=== PATIENT | female | born 1985 | race Caucasian/White ===

== ENCOUNTER 2020-07-02 17:40 | Emergency (ER) | payer MEDICAID ==
[~2020-07-02] VITALS: Ht 167.6 cm; Wt 99.8 kg
[2020-07-02 18:02] LABS: URINE BILIRUBIN NEGATIVE (Negative); URINE BLOOD NEGATIVE (Negative); URINE CLARITY CLEAR; URINE COLOR YELLOW; URINE GLUCOSE-RANDOM NEGATIVE (Negative); URINE KETONES NEGATIVE (Negative); URINE LEUKOCYTES-REFLEX TRACE (Negative); URINE PROTEIN NEGATIVE (Negative); URINE UROBILINOGEN 0.2 E.U./dl (0.2-1.0)
[2020-07-02 18:05] LABS: URINE NITRITE-REFLEX POSITIVE (Negative)
[2020-07-02 18:26] LABS: BACTERIA-REFLEX >30 Many /HPF (None Seen); CASTS None Seen /LPF (None Seen); CRYSTALS None Seen /LPF (None Seen); MUCUS 0-3 Light strn/LPF (None Seen); SQUAMOUS 4-10 Moderate /LPF (0-3); URINE RBC 0-2 Rare /HPF (0-2); URINE WBC-REFLEX 6-15 Few /HPF (0-5); WBC CLUMPS Few (None Seen)
[2020-07-02] MEDS ORDERED: RID COMPLETE TOP (19:08)
[2020-07-02] MEDS ORDERED: KEFLEX500 M1 PO (19:08)
[2020-07-02 19:16] VITALS: BP 132/78
== END 2020-07-02 19:17 | disposition home or self-care (01) ==
LOC: M.ERS 17:40
PROVIDERS: Physician Assistant
DX: H61.22 Impacted cerumen, left ear (principal); N39.0 Urinary tract infection, site not specified; B85.0 Pediculosis due to Pediculus humanus capitis; Z88.0 Allergy status to penicillin; Z88.6 Allergy status to analgesic agent; Z88.8 Allergy status to other drugs, medicaments and biological substances

== ENCOUNTER 2021-04-19 23:40 | Emergency (ER) | payer OTHER ==
[~2021-04-19] VITALS: Ht 167.6 cm; Wt 101.6 kg
[~2021-04-19 23:40] MED LIST: KEFLEX500 M1 PO; RID COMPLETE TOP
[2021-04-19] MEDS ORDERED: TERBINAFINE HC250 MG PO (23:57)
[2021-04-19] MEDS ORDERED: CLARITIN10 M3 PO (23:57)
[2021-04-19] MEDS ORDERED: NEXIUM 24HR20 M1 PO (23:58)
[2021-04-20] MEDS ORDERED: PEPCID40 MG PO (01:26)
[2021-04-20] MEDS ORDERED: MEDROLDOSEPACK PO (01:26)
[2021-04-20 01:45] VITALS: BP 123/89
== END 2021-04-20 01:46 | disposition home or self-care (01) ==
LOC: M.ERS 23:40
DX: R21 Rash and other nonspecific skin eruption (principal); T49.0X5A Adverse effect of local antifungal, anti-infective and anti-inflammatory drugs, initial encounter; J45.909 Unspecified asthma, uncomplicated; Z88.5 Allergy status to narcotic agent; Z88.0 Allergy status to penicillin; Z88.8 Allergy status to other drugs, medicaments and biological substances; Y92.89 Other specified places as the place of occurrence of the external cause

== ENCOUNTER 2021-05-28 19:17 | Emergency (ER) | payer MEDICAID ==
[~2021-05-28] VITALS: Ht 167.6 cm; Wt 102.1 kg
[~2021-05-28 19:17] MED LIST changes: +CLARITIN10 M3 PO; +MEDROLDOSEPACK PO; +NEXIUM 24HR20 M1 PO; +PEPCID40 MG PO; +TERBINAFINE HC250 MG PO
[2021-05-28 20:06] LABS: ABSOLUTE BASOPHILS 0.1 thou/uL (0.0-0.2); ABSOLUTE EOSINOPHILS 0.2 thou/uL (0.0-0.7); ABSOLUTE LYMPHOCYTES 2.1 thou/uL (0.8-5.3); ABSOLUTE MONOCYTES 1.1 thou/uL (0.0-1.2); ABSOLUTE NEUTROPHILS 7.2 thou/uL (1.6-8.1); BASOPHILS 0.9 %; EOSINOPHILS 1.9 %; HEMATOCRIT 38.4 % (37.0-47.0); LYMPHOCYTES 19.4 %; MCH 27.8 pg (26.0-34.0); MCHC 33.8 g/dL (28.0-37.0); MCV 82.2 fL (80.0-100.0); MONOCYTES 10.7 %; MPV 8.7 fl. (7.2-11.1); NUCLEATED RBCS 0 /100WBC; PLATELET COUNT* 313 thou/uL (150-400); POLYS 67.1 %; RBC 4.66 mil/uL (4.20-5.00); WBC 10.8 thou/uL (4.0-11.0)
[2021-05-28 20:17] LABS: CALCIUM 8.5 mg/dL (8.5-10.1); CREATININE 0.9 mg/dL (0.6-1.3); POTASSIUM 3.9 mmol/L (3.5-5.1)
[2021-05-28 20:21] LABS: ALBUMIN 3.3 g/dL (3.4-5.0); TOTAL BILIRUBIN 0.3 mg/dL (<0.1-1.0); TOTAL PROTEIN 7.1 g/dL (6.4-8.2)
[2021-05-28 20:44] LABS: URINE BILIRUBIN NEGATIVE (Negative); URINE BLOOD NEGATIVE (Negative); URINE CLARITY CLEAR; URINE COLOR YELLOW; URINE GLUCOSE-RANDOM NEGATIVE (Negative); URINE KETONES NEGATIVE (Negative); URINE NITRITE-REFLEX NEGATIVE (Negative); URINE PROTEIN NEGATIVE (Negative); URINE SPECIFIC GRAVITY <= 1.005 (1.005-1.030); URINE UROBILINOGEN 0.2 E.U./dl (0.2-1.0)
[2021-05-28 20:45] LABS: URINE LEUKOCYTES-REFLEX 2+ (Negative)
[2021-05-28 20:51] LABS: SQUAMOUS 0-3 Few /LPF (0-3)
[2021-05-28 20:53] LABS: BACTERIA-REFLEX None Seen /HPF (None Seen); CASTS None Seen /LPF (None Seen); CRYSTALS None Seen /LPF (None Seen); URINE RBC None Seen /HPF (0-2); URINE WBC-REFLEX 0-5 Rare /HPF (0-5)
[2021-05-28 20:57] LABS: AMP/METHAMP Negative (Negative); BARBITURATES Negative (Negative); BENZODIAZEPINES Negative (Negative); COCAINE Negative (Negative); METHADONE Negative (Negative); OPIATES Negative (Negative); PCP Negative (Negative); THC Negative (Negative)
[2021-05-28] MEDS ORDERED: CEPHALEXIN500 MG PO (21:35)
[2021-05-28] MEDS ORDERED: ZOFRAN ODT4 MG PO (21:35)
[2021-05-28] MEDS ORDERED: CARAFATE 1 GM TA1 GM PO (21:35)
[2021-05-28 21:44] VITALS: BP 131/59
== END 2021-05-28 21:45 | disposition home or self-care (01) ==
LOC: M.ERS 19:17
PROVIDERS: Personal Emergency Response Attendant
DX: R11.2 Nausea with vomiting, unspecified (principal); Z20.822 Contact with and (suspected) exposure to COVID-19; R10.84 Generalized abdominal pain; J45.909 Unspecified asthma, uncomplicated; Z88.0 Allergy status to penicillin; Z88.5 Allergy status to narcotic agent; Z88.8 Allergy status to other drugs, medicaments and biological substances; Z79.899 Other long term (current) drug therapy